=== PATIENT | male | born 1995 | race Caucasian/White ===

== ENCOUNTER 2016-07-31 21:11 | Emergency (ER) | payer OTHER ==
[~2016-07-31] VITALS: Ht 180.3 cm; Wt 89.5 kg
[2016-07-31 21:26] VITALS: Ht 180.3 cm; Wt 89.5 kg
--- NOTE | 2016-07-31 22:57 | ERD ---
ER Documentation Chief Complaint Date/Time DATE: 07/31/16 TIME: 22:55 Chief Complaint RIGHT JAW PAIN STARTED 2 DAYS AGO HPI 20-year-old female presents here in emergency department for complaints of right jaw pain, bilateral hand pain after falling 2 days ago. Patient fell on his right jaw and bilateral palms of the hand, started to have the pain afterwards. Patient described the pain as throbbing pain, 6/10 scale, is worse upon touching the area of the palms of the hand and right jaw area. Patient did not take any medications of symptoms. Patient denies any deformity. Patient did not lose consciousness after the injury. Patient denies any deformity. Patient denies any numbness or tingling. Patient did not take any medications for pain. ROS All systems reviewed and are negative except as per history of present illness. Medications Home Meds Reported Medications [none] Unknown Strength No Conflict Check 07/31/16 Allergies Allergies: Coded Allergies: No Known Allergy (Unverified , 07/31/16) PMhx/Soc Medical and Surgical Hx: pt denies Medical Hx, pt denies Surgical Hx Hx Alcohol Use: No Hx Substance Use: No Hx Tobacco Use: No FmHx Family History: No coronary disease, No diabetes, No other Physical Exam Vitals Vital Signs Date Time Temp Pulse Resp B/P Pulse Ox O2 Delivery O2 Flow Rate FiO2 07/31/16 21:26 98.3 115 20 140/84 98 Physical Exam GENERAL: The patient is well developed and appropriate for usual state of health, in no apparent distress. CHEST: Clear to auscultation bilaterally. There are no rales, wheezes or rhonchi. HEART: Regular rate and rhythm. No murmurs, clicks, rubs or gallops. No S3 or S4. ABDOMEN: Soft, nontender and nondistended. Good bowel sounds. No rebound or guarding. No gross peritonitis. No gross organomegaly or masses. No Gibson sign or McBurney point tenderness. BACK: No midline or flank tenderness. EXTREMITIES: No deformity noted in bilateral hands, able to do full range of motion of the joints of bilateral hands without any restriction. Able to open and close the jaw without any restriction. No clicking Noted. No Deformity Noted. Equal pulses bilaterally. Full range of motion of the joints of the body. Grossly neurovascularly intact. NEURO: Alert and oriented. Cranial nerves 2-12 intact. Motor strength in all 4 extremities with 5/5 strength. Sensation grossly intact. Normal speech and gait. SKIN: There is no apparent rash or petechia. The skin is warm and dry. HEMATOLOGIC AND LYMPHATIC: There is no evidence of excessive bruising or lymphedema. No gross cervical, axillary, or inguinal lymphadenopathy. Results 24 hrs PROCEDURE: XR Hands. CLINICAL INDICATION: Fall. Hand pain. TECHNIQUE: Three views of the bilateral hands are available for review. COMPARISON: No prior studies are available for comparison. FINDINGS: No bony fracture or dislocation is seen. The joint spaces are preserved. Bone mineralization is normal. No radiopaque foreign body is identified. The soft tissues are unremarkable. IMPRESSION: 1. Unremarkable bilateral hand x-rays series. RPTAT: HLDM .Sky Blevins MD, Date Time Electronically viewed and signed by .Sky Blevins MD, on 07/31/2016 23: 51 .M/ CC: YELENA LAZO [employer] Patient refuses mandible x-rays done, but patient is able to open and close the mandible area, no deformity noted, no dislocation noted, at this time, patient was explained that we could not see hairline fractures if he does not agree with x-ray, patient verbalized understanding at this time, refuses to do x-rays at this time of the mandible. Procedures/MDM Medical Decision Making: Patient's pain is most likely consistent with a contusion or a sprain. There is no suspicion for neurovascular compromise. Patient has intact sensation and circulation of the affected extremity. There is low suspicion for septic arthritis. Patient does not have any fever. Radiology exams of the affected area does not show any fracture or dislocation. Disposition: Home. Patient is given prescription for ibuprofen for pain. Patient was advised to elevate the affected area and apply ice on affected area. Patient was advised that if symptoms are worse, numbness, tingling, high fever, unable to move joint, worsening symptoms, to return to emergency department immediately. Otherwise, patient is advised to follow up with the primary care doctor in 5-7 days for reevaluation of symptoms. Departure Diagnosis: Primary Impression: Jaw pain Additional Impression: Hand pain Laterality: bilateral Qualified Code: M79.641 - Pain in both hands Condition: Stable Patient Instructions: Contusion, Hand Additional Instructions: Patient is given prescription for ibuprofen for pain. Patient was advised to elevate the affected area and apply ice on affected area. Patient was advised that if symptoms are worse, numbness, tingling, high fever, unable to move joint , worsening symptoms, to return to emergency department immediately. Otherwise, patient is advised to follow up with the primary care doctor in 5-7 days for reevaluation of symptoms. YELENA LAZO NP Jul 31, 2016 22:57
--- NOTE | 2016-07-31 23:52 | RADRPT ---
PROCEDURE: XR Hands. CLINICAL INDICATION: Fall. Hand pain. TECHNIQUE: Three views of the bilateral hands are available for review. COMPARISON: No prior studies are available for comparison. FINDINGS: No bony fracture or dislocation is seen. The joint spaces are preserved. Bone mineralization is normal. No radiopaque foreign body is identified. The soft tissues are unremarkable. IMPRESSION: 1. Unremarkable bilateral hand x-rays series. RPTAT: HLDM .Sky Blevins MD, MD Date Time Electronically viewed and signed by .Sky Blevins MD, on 07/31/2016 23:51 .M/
[2016-08-01] MEDS ORDERED: IBUP-1542 PO (00:08)
== END 2016-08-01 01:00 | disposition left against medical advice (07) ==
LOC: FTE 21:11
DX: S09.93XA Unspecified injury of face, initial encounter (principal); S69.91XA Unspecified injury of right wrist, hand and finger(s), initial encounter; S69.92XA Unspecified injury of left wrist, hand and finger(s), initial encounter; W19.XXXA Unspecified fall, initial encounter; Y92.9 Unspecified place or not applicable
CPT/HCPCS: 73130